=== PATIENT | female | born 1970 | race Two or more races ===

== ENCOUNTER 2022-08-23 20:49 | Emergency (ER) | payer OTHER ==
[~2022-08-23] VITALS: Ht 165.1 cm; Wt 65.8 kg
[2022-08-23] MEDS ORDERED: ESTAZOLAM2 MG PO (21:42)
[2022-08-23] MEDS ORDERED: PAXIL20 MG PO (21:43)
== END 2022-08-24 02:19 ==
LOC: ER 20:49
DX: B34.9 Viral infection, unspecified (principal); Z20.822 Contact with and (suspected) exposure to COVID-19